=== PATIENT | female | born 1945 | race Caucasian/White ===

== ENCOUNTER 2016-11-23 16:09 | Inpatient (IN) | payer MEDICARE, OTHER ==
[~2016-11-23] VITALS: Ht 166.4 cm; Wt 76.4 kg
[2016-11-23 17:08] LABS: HEMATOCRIT 43.5 % (34.6-47.8); HEMOGLOBIN 14.6 g/dL (11.7-16.4); WHITE BLOOD COUNT 9.8 x10^3/uL (3.4-10)
[2016-11-23] MEDS ORDERED: DILTIAZEM 5 MG/ML, 5ML IVPush STA (17:27)
[2016-11-23] MEDS ORDERED: ENOXAPARIN 80 MG/0.8 ML SQ ONE (17:30)
[2016-11-23 17:33] LABS: BLOOD UREA NITROGEN 24 mg/dL (7-18)
[2016-11-23] MEDS ORDERED: DILTIAZEM 5 MG/ML, 5ML ONE (17:33)
[2016-11-23 17:41] LABS: IS PT STATUS REG ER OR PRE ER? YES
[2016-11-23] MEDS ORDERED: ENOXAPARIN 80 MG/0.8 ML ONE (17:44)
[2016-11-23] MEDS ORDERED: PLEASE ENTER ALLERGIES MC SCH ×2 (18:00)
[2016-11-23] MEDS ORDERED: LOSA25TA5 PO (20:38)
[2016-11-23] MEDS ORDERED: DOCUSATE 100 MG CAPSULE PO PRN (21:00)
[2016-11-23] MEDS ORDERED: DILTIAZEM 5 MG/ML, 5ML IVPush PRN (21:00)
[2016-11-23] MEDS ORDERED: ONDANSETRON ODT 4 MG PO PRN (21:00)
[2016-11-23 21:49] VITALS: BP 153/83
[2016-11-23] MEDS ORDERED: ALEN40TA2 PO (23:07)
[2016-11-24 04:44] VITALS: BP 149/93
[2016-11-24 05:33] LABS: BLOOD UREA NITROGEN 16 mg/dL (7-18)
[2016-11-24 05:39] LABS: HEMATOCRIT 41.2 % (34.6-47.8); HEMOGLOBIN 13.9 g/dL (11.7-16.4); WHITE BLOOD COUNT 7.4 x10^3/uL (3.4-10)
[2016-11-24] MEDS ORDERED: ENOXAPARIN 80 MG/0.8 ML SQ SCH (06:00)
[2016-11-24] MEDS ORDERED: METOPROLOL TARTRATE 25 MG TABLET PO SCH (06:00)
[2016-11-24 08:00] VITALS: BP 145/85
[2016-11-24] MEDS: LOSARTAN 25MG TABLET PO SCH (09:16)
[2016-11-24] MEDS: SOTALOL 80MG TABLET PO SCH ×2 (10:33→20:33)
[2016-11-24 13:24] VITALS: BP 135/71
[2016-11-24 20:32] VITALS: BP 123/79
[2016-11-24] MEDS: APIXABAN 5 MG TABLET PO SCH (20:33)
[2016-11-25 01:46] VITALS: BP 116/69
[2016-11-25 05:30] LABS: HEMATOCRIT 39.9 % (34.6-47.8); HEMOGLOBIN 13.4 g/dL (11.7-16.4); WHITE BLOOD COUNT 6.9 x10^3/uL (3.4-10)
[2016-11-25 05:53] LABS: ASPARTATE AMINO TRANSFERASE 15 U/L (15-37); BLOOD UREA NITROGEN 18 mg/dL (7-18)
[2016-11-25] MEDS: SOTALOL 80MG TABLET PO SCH ×2 (06:01→18:52)
[2016-11-25 07:40] VITALS: BP 157/74
[2016-11-25] MEDS ORDERED: REGADENOSON 0.4 MG/5 ML SYRINGE ONE (09:11)
[2016-11-25 11:18] VITALS: BP 158/82
[2016-11-25] MEDS: LOSARTAN 25MG TABLET PO SCH ×2 (11:20→21:13)
[2016-11-25] MEDS: APIXABAN 5 MG TABLET PO SCH ×2 (11:21→21:13)
[2016-11-25 15:50] VITALS: BP 161/77
[2016-11-25 19:30] VITALS: BP 139/83
[2016-11-26 04:30] VITALS: BP 153/70
[2016-11-26 04:50] LABS: HEMATOCRIT 40.5 % (34.6-47.8); HEMOGLOBIN 13.6 g/dL (11.7-16.4); WHITE BLOOD COUNT 8.1 x10^3/uL (3.4-10)
[2016-11-26 05:07] LABS: ASPARTATE AMINO TRANSFERASE 17 U/L (15-37); BLOOD UREA NITROGEN 21 mg/dL (7-18)
[2016-11-26] MEDS: SOTALOL 80MG TABLET PO SCH ×2 (06:29→18:53)
[2016-11-26 08:00] VITALS: BP 114/74
[2016-11-26] MEDS: LOSARTAN 25MG TABLET PO SCH ×2 (08:53→20:48)
[2016-11-26] MEDS: APIXABAN 5 MG TABLET PO SCH ×2 (09:05→20:48)
[2016-11-26 13:58] VITALS: BP 107/69
[2016-11-26 20:46] VITALS: BP 118/85
[2016-11-27 02:00] VITALS: BP 115/72
[2016-11-27 05:09] LABS: HEMATOCRIT 42.5 % (34.6-47.8); HEMOGLOBIN 14.3 g/dL (11.7-16.4); WHITE BLOOD COUNT 8.3 x10^3/uL (3.4-10)
[2016-11-27 05:20] LABS: BLOOD UREA NITROGEN 22 mg/dL (7-18)
[2016-11-27] MEDS: SOTALOL 80MG TABLET PO SCH (05:58)
[2016-11-27 08:53] VITALS: BP 121/70
[2016-11-27] MEDS: LOSARTAN 25MG TABLET PO SCH (09:21)
[2016-11-27] MEDS: APIXABAN 5 MG TABLET PO SCH (09:21)
[2016-11-27 14:58] VITALS: BP 112/71
[2016-11-27] MEDS ORDERED: SOTA80TA18 PO (17:02)
[2016-11-27] MEDS ORDERED: APIX5TAB PO (17:02)
== END 2016-11-27 17:16 | disposition home or self-care (01) | DRG 309 ==
LOC: ED 18:27 → EDIP 18:30 → 5SO 21:38 → DCLOUNGE 11-27 16:40
PROVIDERS: ADMIT Internal Medicine; ATTEND Internal Medicine
DX: I48.0 Paroxysmal atrial fibrillation (principal); D68.59 Other primary thrombophilia; I48.92 Unspecified atrial flutter; M81.0 Age-related osteoporosis without current pathological fracture; I10 Essential (primary) hypertension; I16.0 Hypertensive urgency; Z80.52 Family history of malignant neoplasm of bladder; Z82.49 Family history of ischemic heart disease and other diseases of the circulatory system; Z87.891 Personal history of nicotine dependence
CPT/HCPCS: 36415; 71010; 78452; 80048; 80053; 80061; 82040; 83735; 84100; 84443; 84481; 84484; 85025; 85610; 93005; 93017; 93306; 93970; 96372; 96374; J1650; J2785; A9502; C9898

== ENCOUNTER → 2018-07-22 | Outpatient (CLI) | payer MEDICARE, OTHER ==
[~2018-07-22] MED LIST: ALEN40TA2 PO; APIX5TAB PO; LOSA25TA25 PO; SOTA80TA18 PO
== END | disposition home or self-care (01) ==
LOC: CFH 08:56
PROVIDERS: ATTEND Internal Medicine Cardiovascular Disease
DX: I08.8 Other rheumatic multiple valve diseases (principal); I10 Essential (primary) hypertension; I48.0 Paroxysmal atrial fibrillation; E78.5 Hyperlipidemia, unspecified
CPT/HCPCS: 93306